=== PATIENT | male | born 1945 | race Caucasian/White ===

== ENCOUNTER 2019-06-28 02:32 | Inpatient (IN) | payer MEDICARE, OTHER ==
[2019-06-28] VITALS (7 sets, daily range): BP systolic 130–156; BP diastolic 64–91
[~2019-06-28] VITALS: Ht 182.9 cm; Wt 86.2 kg
[2019-06-28] MEDS ORDERED: ONDANSETRON PF 4 MG/2 ML VIAL. IVP ONE (03:10)
[2019-06-28] MEDS ORDERED: MORPHINE SULFATE 4 MG/ML VIAL. IV ONE ×2 (03:10→11:30)
--- NOTE | 2019-06-28 06:47 | RAD ---
Indication: Wrist pain after fall TECHNIQUE: 3 views of the left wrist COMPARISON: None Findings/ impression: No acute fracture or dislocation. No wrist edema. Electronically signed by: Terrance Vega DO (06/28/2019 6:44 AM) [facility]
--- NOTE | 2019-06-28 06:48 | RAD ---
Indication: Fall TECHNIQUE: 3 views of the left hip COMPARISON: None Findings/ impression: Complete Left femoral neck fracture is seen with mild displacement.. Electronically signed by: Terrance Vega DO (06/28/2019 6:45 AM) [id number]
[2019-06-28 07:01] LABS: ALBUMIN 3.9 g/dL (3.4-5.0); CALCIUM 8.9 mg/dL (8.5-10.1); CREATININE 0.9 mg/dL (0.7-1.3); GFR 82.9; POTASSIUM 3.6 mmol/L (3.5-5.1); TOTAL BILIRUBIN 0.2 mg/dL (0.2-1.0); TOTAL PROTEIN 7.7 g/dL (6.4-8.2)
[2019-06-28 07:19] LABS: BASO % 1 % (0-3); EOS # 0.1 x10^3/uL (0.0-0.7); EOS % 1 % (0-3); HEMATOCRIT 42.4 % (39.0-53.0); HEMOGLOBIN 14.4 g/dL (13.0-17.5); LYMPH # 1.4 x10^3/uL (1.0-4.8); LYMPH % 29 % (24-48); MEAN CORPUSCULAR HEMOGLOBIN 33 pg (25-35); MEAN CORPUSCULAR HGB CONC 34 g/dL (31-37); MEAN CORPUSCULAR VOLUME 97 fL (79-100); MONO # 0.5 x10^3/uL (0.0-1.1); MONO % 11 % (0-9); NEUT # 2.8 x10^3/uL (1.8-7.7); NEUT % 58 % (31-73); PLATELET COUNT 213 x10^3/uL (140-400); RED CELL DISTRIBUTION WIDTH 13.9 % (11.5-14.5); WHITE BLOOD COUNT 4.8 x10^3/uL (4.0-11.0)
[2019-06-28] MEDS: MORPHINE SULFATE 4 MG/ML VIAL. IV ONE ×2 (08:00→10:56)
[2019-06-28] MEDS ORDERED: fentaNYL PF VIAL 100 MCG/2 ML VIAL IV PRN ×2 (08:30)
[2019-06-28] MEDS ORDERED: HYDROmorphone 2 MG/ML VIAL IV PRN (08:30)
[2019-06-28] MEDS ORDERED: MORPHINE SULFATE 2 MG/ML VIAL. IV PRN ×2 (08:30→20:45)
[2019-06-28] MEDS ORDERED: ONDANSETRON PF 4 MG/2 ML VIAL. IV PRN (08:30)
[2019-06-28] MEDS ORDERED: PROCHLORPERAZINE 10 MG/2 ML VIAL. IV PRN (08:30)
[2019-06-28] MEDS ORDERED: ceFAZolin SODIUM 1 GM in IV DEXTROSE 5% 50 ML IV ONE (08:45)
[2019-06-28] MEDS ORDERED: PANT40TA77 PO (09:53)
[2019-06-28] MEDS ORDERED: CETI10TA16 PO (09:53)
[2019-06-28] MEDS ORDERED: ASPI-630 PO (09:53)
--- NOTE | 2019-06-28 10:30 | NUR ---
KYRA following for discharge planning, chart reviewed, discussed with RN. Pt is from home alone, per RN, pt has some stairs in the home. Pt having surgery today at 11 or noon. Pt's daughter Cora listed as contact ([phone]), [facility]RA will contact to discuss discharge planning. PT/OT to work with pt after surgery. [facility] will continue to follow. Addendum: 06/28/19 at 1505 by KRYSTAL RAE KYRA left voicemail for pt's dtr, Cora ([phone]) requesting a call back. [facility] will continue to follow.
[2019-06-28] MEDS ORDERED: ROCURONIUM 50 MG/5 ML VIAL. ONE (10:32)
[2019-06-28] MEDS ORDERED: LIDOCAINE 2% PF 5 ML VIAL. ONE (10:33)
[2019-06-28] MEDS ORDERED: ONDANSETRON PF 4 MG/2 ML VIAL. ONE (10:33)
[2019-06-28] MEDS ORDERED: SEVOFLURANE 61 TO 120 MINUTES. IH ONE (10:33)
[2019-06-28] MEDS ORDERED: PHENYLEPHRINE in 0.9% NACL PF 1 MG/10 ML SYRINGE. IV ONE (10:33)
[2019-06-28] MEDS ORDERED: PROPOFOL 20 ML IV ONE (10:33)
[2019-06-28] MEDS ORDERED: DEXAMETHASONE SOD PHOS 4 MG/ML VIAL ONE (10:33)
[2019-06-28] MEDS ORDERED: NEOSTIGMINE METHYLSULFATE 5 MG/5 ML SYRINGE. ONE (10:33)
[2019-06-28] MEDS: IV RINGERS,LACTATED 1000ML 1,000 ML IV SCH ×2 (10:46→14:33)
[2019-06-28] MEDS ORDERED: MORPHINE SULFATE 5 MG, KETOROLAC 30MG VIAL 30 MG, ROPIVacaine 0.5% PF 60 ML, EPINEPHrin... INT ART ONE ×5 (12:00)
--- NOTE | 2019-06-28 12:06 | HP ---
ADMIT DATE: 06/28/2019 CHIEF COMPLAINT: Fall with hip pain. HISTORY OF PRESENT ILLNESS: The patient is a pleasant 74-year-old male who fell. He complained of left hip pain. I think he tried to sleep it off, but states his hip was hurting so much. He came to the ER and sure enough the x-rays were confirming of left hip fracture. He is now being seen in the preoperative area and he is getting ready to go to surgery here in a few minutes. PAST MEDICAL HISTORY: GERD and allergic rhinitis. ALLERGIES: None. FAMILY HISTORY: Hypertension. SOCIAL HISTORY: Does not drink, smoke or take drugs. He is and still works. MEDICATIONS: Reviewed, please refer to the MRAD. REVIEW OF SYSTEMS: GENERAL: No history of weight change, weakness or fevers. SKIN: No bruising, hair changes or rashes. EYES: No blurred, double or loss of vision. NOSE AND THROAT: No history of nosebleeds, hoarseness or sore throat. HEART: No history of palpitations, chest pain or shortness of breath on exertion. LUNGS: Denies cough, hemoptysis, wheezing or shortness of breath. GASTROINTESTINAL: Denies changes in appetite, nausea, vomiting, diarrhea or constipation. GENITOURINARY: No history of frequency, urgency, hesitancy or nocturia. NEUROLOGIC: Denies history of numbness, tingling, tremor or weakness. PSYCHIATRIC: No history of panic, anxiety or depression. ENDOCRINE: No history of heat or cold intolerance, polyuria or polydipsia. EXTREMITIES: He complains of left hip pain. PHYSICAL EXAMINATION: VITALS: Within normal limits and are stable. GENERAL: No apparent distress. Alert and oriented. HEENT: Head is normocephalic, atraumatic, pupils were equally round and reactive to light and accommodation. NECK: Supple, no JVD, no thyromegaly was noted. LUNGS: Clear to auscultation in all lung reeves without rhonchi or wheezing. HEART: RRR, S1, S2 present. Peripheral pulses intact, no obvious murmurs were noted. ABDOMEN: Soft, nontender. Positive bowel sounds no organomegaly, normal bowel sounds. EXTREMITIES: The left hip is externally rotated. NEUROLOGIC: Normal speech, normal tone. A & O x 3, moves all extremities, no obvious focal deficits. PSYCHIATRIC: Normal affect, normal mood. Stable. SKIN: No ulcerations or rashes, good skin turgor, no jaundice. VASCULAR: Good capillary refill, neurovascular bundle appears to be intact. LABORATORY DATA: White count is 4. Electrolytes are normal. INR is 0.9. ASSESSMENT AND PLAN: Fall with left hip fracture. The patient is going to surgery today. Postoperatively, we will do wound care, physical therapy, occupational therapy, p.r.n. pain meds, resume home medications. Suspect he will need senior care. THOMAS DOMINIQUE DO DR: SCOTT/nereyda JOB#: [id number] / [id number]
[2019-06-28] MEDS ORDERED: KETOROLAC 30 MG/ML VIAL. ONE (13:13)
[2019-06-28] MEDS ORDERED: ePHEDrine PF IN SALINE 50 MG/10 ML SYRINGE. IV ONE (13:21)
--- NOTE | 2019-06-28 13:44 | PDOC4 ---
Operative Note Operative Note Date of procedure: 06/28/2019 Surgeon: Cole Isaact.: Royr Burrell, certified professional ergonomist Preoperative diagnosis: Displaced closed left femoral neck fracture Postoperative diagnosis: Same Procedure performed: Left hip hemiarthroplasty Anesthesia: Gen. Complications: none Blood loss: 250mL Findings: Acute femoral neck fracture Components inserted: Arauz and nephew cemented Synergy stem, +4 sleeve on a 52 mm cobalt chrome head Reason for procedure: Patient is a pleasant 74-year-old male with a history ofa ground-level fall. Please see my consult note for further details. I discussion of the risks, benefits, and alternatives after I evaluated the patient and review the imaging he and his family and they wished to proceed with surgery. Description of procedure: Patient was greeted in the preoperative area by myself for the correct extremity was verified and marked. He was taken back to the operative suite and antibiotics were started as she was brought back. Once in the operating room, he had successful induction of a general anesthetic and was then transferred supine to the operating room table where he was placed in the lateral decubitus position with the left side up. All down pressure points were padded, axillary roll was used, he was secured to the bed with our hip positioning device. Left lower extremity and hip were prepped and draped in our usual sterile fashion including an Ioban Harrison. Preoperative timeout was conducted. Surface anatomy was then palpated and marked. I gemini a line from my standard posterolateral skin incision. Skin was incised with a scalpel and dissected subcutaneous tissue and cauterized bleeders with electrocautery until identified the fascia. Adherent subcutaneous tissues tissue and swept aside with a Barnes elevator for better identification of the fascia for later repair. Fascia was incised in line with the skin incision. Hemorrhagic bursal tissue was excised carefully. Identified the quadratus and piriformis. I took these down with electrocautery. I incised capsule in a T- type incision and tag ends of this for later repair. Identified the fracture site. I palpated and marked on the femoral neck about 1 cm proximal to the lesser trochanter and then made my neck cut here. The bony pieces were delivered from the operative field. The femoral head was delivered from the acetabulum with the assistance of a shoehorn device and a corkscrew. I inspected the acetabulum, she had some wear. He was t horoughly irrigated out, no loose debris was present. After this, repositioned the leg and introduce my proximal femoral elevator. I began broaching and broached to the above size. I then trialed head and neck combinations. After this, all trial components were removed and the operative field including the femoral canal and acetabulum were thoroughly irrigated. I then cemented in Place my stem and held it in position until the cement polymerized. I then re-trialed and selected the above size. I then removed the trial components after dislocating the hip. The acetabulum was again inspected make sure there was no loose debris. The operative field was again irrigated out. I then washed and dried the Donis taper region and gently impacted my cobalt chrome ball into position. The hip was then reduced. I irrigated out the operative field again. I injected my periarticular mixture into the ana-incisional soft tissues. The capsule was closed with simple interrupted #2 Ethibond. Piriformis was reapproximated through drill holes. I then closed fascia with running #2 Quill suture. Inverted interrupted 2-0 Vicryl in a multilayered fashion was used for subcutaneous tissue and kushal for skin. Prior to wound closure, all counts correct 2. No complications. At the conclusion, the patient was laid supine and transferred gently supine to the recovery room cart and taken to the PACU in a stable and extubated condition. Postoperative plan is to readmit the patient back to the floor under the care of the hospitalist. I will follow along. They will receive DVT and antibiotic prophylaxis as well as PT and OT. COLE MCCARTHY II, MD Jun 28, 2019 13:44
--- NOTE | 2019-06-28 13:49 | PDOC2 ---
CONSULT Date of Consult Date of Consult DATE: 06/28/19 TIME: 13:44 Reason for Consult Reason for Consult: Left femoral neck fracture Referring Physician Referring Physician: Laura Identification/Chief Complaint Chief Complaint Left hip pain History of Present Illness Reason for Visit: Patient is a pleasant 74-year-old gentleman who is staying at a friend's, and woke up during the night, he was a little disoriented and thinks he had a ground-level fall, the He knows is that he is having difficulty moving his leg secondary to a lot of pain in his hip. He was unable to bear weight. He sought emergency care and has asked to see him in consultation after x-rays revealed a femoral neck fracture. His complaining of diffuse left hip pain, worse with movement or attempted ambulation. Fairly tolerable at rest and with pain medicine. The pain radiates down his thigh little ways. He has no prior history of hip complaints. Past Medical History Cardiovascular: HTN Heme/Onc: Cancer Hepatobiliary: Cholelithiasis Psych: No pertinent hx Musculoskeletal: Other (gout) Past Surgical History Past Surgical History He has had procedures for myeloma, transfusions he tells me. Cholecystectomy, ventral hernia repair Family History Family History: Heart Disease Social History No ALCOHOL: none Lives: Alone Current Medications Current Medications Current Medications Morphine Sulfate (Morphine Sulfate) 4 mg 1X ONCE IV ; Start 06/28/19 at 03:10; Stop 06/28/19 at 05:20; Status DC Ondansetron HCl (Zofran) 4 mg 1X ONCE IVP ; Start 06/28/19 at 03:10; Stop 06/28/19 at 05:20; Status DC Morphine Sulfate (Morphine Sulfate) 4 mg 1X ONCE IV ; Start 06/28/19 at 08:00; Stop 06/28/19 at 08:01; Status DC Ondansetron HCl (Zofran) 4 mg PRN Q6HRS PRN IV NAUSEA/VOMITING; Start 06/28/19 at 08:30; Stop 06/28/19 at 19:00 Fentanyl Citrate (Fentanyl 2ml Vial) 25 mcg PRN Q5MIN PRN IV MILD PAIN 1-3; Start 06/28/19 at 08:30; Stop 06/28/19 at 19:00 Fentanyl Citrate (Fentanyl 2ml Vial) 50 mcg PRN Q5MIN PRN IV MODERATE TO SEVERE PAIN; Start 06/28/19 at 08:30; Stop 06/28/19 at 19:00 Morphine Sulfate (Morphine Sulfate) 1 mg PRN Q10MIN PRN IV SEVERE PAIN 7-10; Start 06/28/19 at 08:30; Stop 06/28/19 at 19:00 Ringer's Solution 1,000 ml @ 30 mls/hr Q24H IV Last administered on 06/28/19at 10:46; Start 06/28/19 at 08:16; Stop 06/28/19 at 20:15 Hydromorphone HCl (Dilaudid) 0.5 mg PRN Q10MIN PRN IV SEV PAIN, Second choice; Start 06/28/19 at 08:30; Stop 06/28/19 at 19:00 Prochlorperazine Edisylate (Compazine) 5 mg PACU PRN PRN IV NAUSEA, MRX1; Start 06/28/19 at 08:30; Stop 06/28/19 at 19:00 Cefazolin Sodium 1 gm/Dextrose 50 ml @ 100 mls/hr 1X ONCE IV ; Start 06/28/19 at 08:45; Stop 06/28/19 at 09:14; Status UNV Cefazolin Sodium 50 ml @ 100 mls/hr 1X PREOP PRN IV PRIOR TO PROCEDURE; Start 06/28/19 at 06:00; Stop 06/28/19 at 12:06; Status DC Morphine Sulfate 5 mg/Ketorolac Tromethamine 30 mg/Ropivacaine 60 ml/Epinephrine HCl 0.5 mg/Sodium Chloride 100 ml @ 100 mls/hr 1X ONCE INT ART Last administered on 06/28/19at 12:26; Start 06/28/19 at 12:00; Stop 06/28/19 at 12:59; Status DC Rocuronium Brimhall (Zemuron) 50 mg STK-MED ONCE .ROUTE ; Start 06/28/19 at 10:32; Stop 06/28/19 at 10:33; Status DC Neostigmine Methylsulfate (Neostigmine Methylsulfate) 5 mg STK-MED ONCE .ROUTE ; Start 06/28/19 at 10:33; Stop 06/28/19 at 10:33; Status DC Sevoflurane (Ultane) 60 ml STK-MED ONCE IH ; Start 06/28/19 at 10:33; Stop 06/28/19 at 10:33; Status DC Propofol 20 ml @ As Directed STK-MED ONCE IV ; Start 06/28/19 at 10:33; Stop 06/28/19 at 10:33; Status DC Dexamethasone Sodium Phosphate (Decadron) 4 mg STK-MED ONCE .ROUTE ; Start 06/28/19 at 10:33; Stop 06/28/19 at 10:33; Status DC Phenylephrine HCl (PHENYLEPHRINE in 0.9% NACL PF) 1 mg STK-MED ONCE IV ; Start 06/28/19 at 10:33; Stop 06/28/19 at 10:33; Status DC Lidocaine HCl (Lidocaine Pf 2% Vial) 5 ml STK-MED ONCE .ROUTE ; Start 06/28/19 at 10:33; Stop 06/28/19 at 10:33; Status DC Ondansetron HCl (Zofran) 4 mg STK-MED ONCE .ROUTE ; Start 06/28/19 at 10:33; Stop 06/28/19 at 10:34; Status DC Morphine Sulfate (Morphine Sulfate) 4 mg 1X ONCE IV Last administered on 06/28/19at 10:56; Start 06/28/19 at 11:30; Stop 06/28/19 at 11:31; Status DC Cefazolin Sodium/ Dextrose 50 ml @ 100 mls/hr 1X ONCE IV Last administered on 06/28/19at 12:00; Start 06/28/19 at 11:30; Stop 06/28/19 at 11:59; Status DC Cefazolin Sodium/ Dextrose 50 ml @ 100 mls/hr Q6H IV ; Start 06/28/19 at 18:00; Stop 06/29/19 at 06:29 Warfarin Sodium (Coumadin Per Pharmacy) 1 each PRN DAILY PRN MC SEE COMMENTS; Start 06/28/19 at 12:15 Warfarin Sodium (Coumadin) 5 mg 1X ONCE PO ; Start 06/28/19 at 17:00; Stop 06/28/19 at 17:01 Ketorolac Tromethamine (Toradol 30mg Vial) 30 mg STK-MED ONCE .ROUTE ; Start 06/28/19 at 13:13; Stop 06/28/19 at 13:13; Status DC Ephedrine Sulfate (ePHEDrine PF IN SALINE SYRINGE) 50 mg STK-MED ONCE IV ; Start 06/28/19 at 13:21; Stop 06/28/19 at 13:21; Status DC Active Scripts Active Reported Aspirin 81 Mg Tab.chew 1 Tab PO DAILY Pantoprazole Sodium (Pantoprazole Sodium) 40 Mg Tablet.dr 40 Mg PO DAILYAC Cetirizine Hcl 10 Mg Tablet 1 Tab PO DAILY Allergies Allergies: Coded Allergies: No Known Drug Allergies (Unverified , 06/28/19) ROS General: No: Chills, Night Sweats, Fatigue, Malaise, Appetite, Other PSYCHOLOGICAL ROS: No: Anxiety, Behavioral Disorder, Concentration difficultie, Decreased libido, Depression, Disorientation, Hallucinations, Hostility, Irritablity, Memory difficulties, Mood Swings, Obsessive thoughts, Physical abuse, Sexual abuse, Sleep disturbances, Suicidal ideation, Other Eyes: No Blurry vision, No Decreased vision, No Double vision, No Dry eyes, No Excessive tearing, No Eye Pain, No Itchy Eyes, No Loss of vision, No Photophobia, No Scotomata, No Uses contacts, No Uses glasses, No Other HEENT: No: Heacaches, Visual Changes, Hearing change, Nasal congestion, Nasal discharge, Oral lesions, Sinus pain, Sore Throat, Epistaxis, Sneezing, Snoring, Tinnitus, Vertigo, Vocal changes, Other ALLERGY AND IMMUNOLOGY: No: Hives, Insect Bite Sensitivity, Itchy/Watery Eyes, Nasal Congestion, Post Nasal Drip, Seasonal Allergies, Other Hematological and Lymphatic: No: Bleeding Problems, Blood Clots, Blood Transfusions, Brusing, Night Sweats, Pallor, Swollen Lymph Nodes, Other ENDOCRINE: No: Breast Changes, Galactorrhea, Hair Pattern Changes, Hot Flashes, Malaise/lethargy, Mood Swings, Palpitations, Polydipsia/polyuria, Skin Changes, Temperature Intolerance, Unexpected Weight Changes, Other Respiratory: No: Cough, Hemoptysis, Orthopnea, Pleuritic Pain, Shortness of breath, SOB with excertion, Sputum Changes, Stridor, Tachypnea, Wheezing, Other Cardiovascular: No Chest Pain, No Palpitations, No Orthopnea, No Paroxysmal Noc. Dyspnea, No Edema, No Lt Headedness, No Other Gastrointestinal: No Nausea, No Vomiting, No Abdominal Pain, No Diarrhea, No Constipation, No Melena, No Hematochezia, No Other Genitourinary: No Dysuria, No Frequency, No Incontinence, No Hematuria, No Retention, No Discharge, No Urgency, No Pain, No Flank Pain, No Other, No , No , No , No , No , No , No Musculoskeletal: Yes Joint Pain Neurological: No Behavorial Changes, No Bowel/Bladder ControlChng, No Confusion, No Dizziness, No Gait Disturbance, No Headaches, No Impaired Coord/balance, No Memory Loss, No Numbness/Tingling, No Seizures, No Speech Problems, No Tremors, No Visual Changes, No Weakness, No Other Skin: No Dry Skin, No Eczema, No Hair Changes, No Lumps, No Mole Changes, No Mottling, No Nail Changes, No Pruritus, No Rash, No Skin Lesion Changes, No Other, No Acne Physical Exam General: Alert, Oriented X3 HEENT: Atraumatic, EOMI Lungs: Other (respirations are unlabored with symmetric chest rise) Heart: Regular rate Abdomen: Normal bowel sounds, Soft, No tenderness Extremities: No edema, Normal pulses Skin: No rashes Neuro: Normal speech, Strength at 5/5 X4 ext, Sensation intact Psych/Mental Status: Mental status NL, Mood NL MUSCULOSKELETAL: Not examined, Other (examination of bilateral upper extremities reveals full active range of motion, no gross deformity at all joints. Examination bilateral lower extremities reveals left lower extremity is shorter and slightly externally rotated. Normal sensation distally. He can wiggle his toes. No tenderness at bilateral feet ankles or knees.) Vitals VITALS Vital Signs Date Time Temp Pulse Resp B/P (MAP) Pulse Ox O2 Delivery O2 Flow Rate FiO2 06/28/19 11:09 85 20 153/78 94 Room Air 06/28/19 11:05 99.1 99.1 Labs Labs Laboratory Tests Test 06/28/19 02:42 White Blood Count 4.8 x10^3/uL (4.0-11.0) Red Blood Count 4.40 x10^6/uL (4.30-5.70) Hemoglobin 14.4 g/dL (13.0-17.5) Hematocrit 42.4 % (39.0-53.0) Mean Corpuscular Volume 97 fL (79-100) Mean Corpuscular Hemoglobin 33 pg (25-35) Mean Corpuscular Hemoglobin Concent 34 g/dL (31-37) Red Cell Distribution Width 13.9 % (11.5-14.5) Platelet Count 213 x10^3/uL (140-400) Neutrophils (%) (Auto) 58 % (31-73) Lymphocytes (%) (Auto) 29 % (24-48) Monocytes (%) (Auto) 11 % (0-9) Eosinophils (%) (Auto) 1 % (0-3) Basophils (%) (Auto) 1 % (0-3) Neutrophils # (Auto) 2.8 x10^3/uL (1.8-7.7) Lymphocytes # (Auto) 1.4 x10^3/uL (1.0-4.8) Monocytes # (Auto) 0.5 x10^3/uL (0.0-1.1) Eosinophils # (Auto) 0.1 x10^3/uL (0.0-0.7) Basophils # (Auto) 0.0 x10^3/uL (0.0-0.2) Prothrombin Time 12.0 SEC (11.7-14.0) Prothromb Time International Ratio 0.9 (0.8-1.1) Activated Partial Thromboplast Time 28 SEC (24-38) Sodium Level 142 mmol/L (136-145) Potassium Level 3.6 mmol/L (3.5-5.1) Chloride Level 103 mmol/L (98-107) Carbon Dioxide Level 28 mmol/L (21-32) Anion Gap 11 (6-14) Blood Urea Nitrogen 12 mg/dL (8-26) Creatinine 0.9 mg/dL (0.7-1.3) Estimated GFR (Cockcroft-Gault) 82.9 BUN/Creatinine Ratio 13 (6-20) Glucose Level 104 mg/dL (70-99) Calcium Level 8.9 mg/dL (8.5-10.1) Total Bilirubin 0.2 mg/dL (0.2-1.0) Aspartate Amino Transf (AST/SGOT) 25 U/L (15-37) Alanine Aminotransferase (ALT/SGPT) 28 U/L (16-63) Alkaline Phosphatase 97 U/L (46-116) Total Protein 7.7 g/dL (6.4-8.2) Albumin 3.9 g/dL (3.4-5.0) Albumin/Globulin Ratio 1.0 (1.0-1.7) Laboratory Tests Test 06/28/19 02:42 White Blood Count 4.8 x10^3/uL (4.0-11.0) Red Blood Count 4.40 x10^6/uL (4.30-5.70) Hemoglobin 14.4 g/dL (13.0-17.5) Hematocrit 42.4 % (39.0-53.0) Mean Corpuscular Volume 97 fL (79-100) Mean Corpuscular Hemoglobin 33 pg (25-35) Mean Corpuscular Hemoglobin Concent 34 g/dL (31-37) Red Cell Distribution Width 13.9 % (11.5-14.5) Platelet Count 213 x10^3/uL (140-400) Neutrophils (%) (Auto) 58 % (31-73) Lymphocytes (%) (Auto) 29 % (24-48) Monocytes (%) (Auto) 11 % (0-9) Eosinophils (%) (Auto) 1 % (0-3) Basophils (%) (Auto) 1 % (0-3) Neutrophils # (Auto) 2.8 x10^3/uL (1.8-7.7) Lymphocytes # (Auto) 1.4 x10^3/uL (1.0-4.8) Monocytes # (Auto) 0.5 x10^3/uL (0.0-1.1) Eosinophils # (Auto) 0.1 x10^3/uL (0.0-0.7) Basophils # (Auto) 0.0 x10^3/uL (0.0-0.2) Prothrombin Time 12.0 SEC (11.7-14.0) Prothromb Time International Ratio 0.9 (0.8-1.1) Activated Partial Thromboplast Time 28 SEC (24-38) Sodium Level 142 mmol/L (136-145) Potassium Level 3.6 mmol/L (3.5-5.1) Chloride Level 103 mmol/L (98-107) Carbon Dioxide Level 28 mmol/L (21-32) Anion Gap 11 (6-14) Blood Urea Nitrogen 12 mg/dL (8-26) Creatinine 0.9 mg/dL (0.7-1.3) Estimated GFR (Cockcroft-Gault) 82.9 BUN/Creatinine Ratio 13 (6-20) Glucose Level 104 mg/dL (70-99) Calcium Level 8.9 mg/dL (8.5-10.1) Total Bilirubin 0.2 mg/dL (0.2-1.0) Aspartate Amino Transf (AST/SGOT) 25 U/L (15-37) Alanine Aminotransferase (ALT/SGPT) 28 U/L (16-63) Alkaline Phosphatase 97 U/L (46-116) Total Protein 7.7 g/dL (6.4-8.2) Albumin 3.9 g/dL (3.4-5.0) Albumin/Globulin Ratio 1.0 (1.0-1.7) Images Images The pelvis x-rays were interpreted by myself. Reports reviewed. Displaced left femoral neck fracture Assessment/Plan Assessment/Plan Today, he did have a discussion of the risks, benefits, and alternatives with this gentleman regarding left hip hemiarthroplasty. He would like to proceed with surgery. MAYLIN MCCARTHY II, MD Jun 28, 2019 13:49
--- NOTE | 2019-06-28 15:20 | RAD ---
EXAM: Pelvis, single view. HISTORY: Arthroplasty. COMPARISON: 06/28/2019 FINDINGS: Frontal views of the pelvis are obtained. There is a left hip arthroplasty in expected position. There is surrounding soft tissue gas and there are lateral skin kushal due to recent surgery. There are findings consistent with right inguinal hernia repair. There is degenerative change involving the lumbar spine. IMPRESSION: Left hip arthroplasty in expected position. Electronically signed by: Tess Oneill MD (06/28/2019 3:17 PM) [place] [id number]
[2019-06-28] MEDS ORDERED: WARFARIN 5 MG TABLET. PO ONE (17:00)
[2019-06-28] MEDS: HYDROcodone/APAP 5/325MG 1 TAB TABLET PO PRN (20:58)
[2019-06-29] MEDS ORDERED: BENZOCAINE/MENTHOL LOZENGE. PO PRN (00:45)
[2019-06-29 03:00] VITALS: BP 106/71
[2019-06-29] MEDS: HYDROcodone/APAP 5/325MG 1 TAB TABLET PO PRN ×4 (06:12→22:00)
[2019-06-29 07:00] VITALS: BP 119/67
[2019-06-29] MEDS ORDERED: ONDANSETRON PF 4 MG/2 ML VIAL. IVP PRN (07:30)
[2019-06-29 08:29] LABS: BASO % 0 % (0-3); EOS % 0 % (0-3); HEMOGLOBIN 11.4 g/dL (13.0-17.5); LYMPH # 1.7 x10^3/uL (1.0-4.8); LYMPH % 17 % (24-48); MEAN CORPUSCULAR HEMOGLOBIN 33 pg (25-35); MEAN CORPUSCULAR HGB CONC 35 g/dL (31-37); MEAN CORPUSCULAR VOLUME 96 fL (79-100); MONO # 1.3 x10^3/uL (0.0-1.1); MONO % 13 % (0-9); NEUT # 7.4 x10^3/uL (1.8-7.7); NEUT % 70 % (31-73); PLATELET COUNT 156 x10^3/uL (140-400); RED BLOOD COUNT 3.45 x10^6/uL (4.30-5.70); RED CELL DISTRIBUTION WIDTH 13.9 % (11.5-14.5); WHITE BLOOD COUNT 10.5 x10^3/uL (4.0-11.0)
[2019-06-29 08:45] LABS: CALCIUM 8.1 mg/dL (8.5-10.1); CREATININE 1.2 mg/dL (0.7-1.3); GFR 59.5; POTASSIUM 4.3 mmol/L (3.5-5.1)
--- NOTE | 2019-06-29 08:49 | PDOC ---
PROGRESS NOTES Chief Complaint Chief Complaint s/p left hip sx for fx 06/28 HTN, controlled Seasonal allergies Ground level fall History of Present Illness History of Present Illness Eating breakfast and no overnight events Pre op labs look great PLeasant FAmily at bedside VS good INterested in rehab Looking forward to pT later PLAN: check POst op labs, CHeck vit D PT OT SW rehab FULL CODE Vitals Vitals Vital Signs Date Time Temp Pulse Resp B/P (MAP) Pulse Ox O2 Delivery O2 Flow Rate FiO2 06/29/19 07:00 98.0 80 18 119/67 (84) 92 Room Air 98.0 06/28/19 16:30 2.0 Physical Exam General: Alert, Oriented X3 Heart: Regular rate Abdomen: Normal bowel sounds, Soft, No tenderness Extremities: No edema, Normal pulses Skin: No rashes Labs LABS Laboratory Tests Test 06/29/19 08:10 White Blood Count 10.5 x10^3/uL (4.0-11.0) Red Blood Count 3.45 x10^6/uL (4.30-5.70) Hemoglobin 11.4 g/dL (13.0-17.5) Hematocrit 33.0 % (39.0-53.0) Mean Corpuscular Volume 96 fL (79-100) Mean Corpuscular Hemoglobin 33 pg (25-35) Mean Corpuscular Hemoglobin Concent 35 g/dL (31-37) Red Cell Distribution Width 13.9 % (11.5-14.5) Platelet Count 156 x10^3/uL (140-400) Neutrophils (%) (Auto) 70 % (31-73) Lymphocytes (%) (Auto) 17 % (24-48) Monocytes (%) (Auto) 13 % (0-9) Eosinophils (%) (Auto) 0 % (0-3) Basophils (%) (Auto) 0 % (0-3) Neutrophils # (Auto) 7.4 x10^3/uL (1.8-7.7) Lymphocytes # (Auto) 1.7 x10^3/uL (1.0-4.8) Monocytes # (Auto) 1.3 x10^3/uL (0.0-1.1) Eosinophils # (Auto) 0.0 x10^3/uL (0.0-0.7) Basophils # (Auto) 0.0 x10^3/uL (0.0-0.2) Review of Systems Review of Systems neg 14 pt aside from left hip soreness when moving Comment Review of Relevant I have reviewed the following items brad (where applicable) has been applied. Labs Laboratory Tests Test 06/28/19 02:42 06/29/19 08:10 White Blood Count 4.8 x10^3/uL (4.0-11.0) 10.5 x10^3/uL (4.0-11.0) Red Blood Count 4.40 x10^6/uL (4.30-5.70) 3.45 x10^6/uL (4.30-5.70) Hemoglobin 14.4 g/dL (13.0-17.5) 11.4 g/dL (13.0-17.5) Hematocrit 42.4 % (39.0-53.0) 33.0 % (39.0-53.0) Mean Corpuscular Volume 97 fL (79-100) 96 fL (79-100) Mean Corpuscular Hemoglobin 33 pg (25-35) 33 pg (25-35) Mean Corpuscular Hemoglobin Concent 34 g/dL (31-37) 35 g/dL (31-37) Red Cell Distribution Width 13.9 % (11.5-14.5) 13.9 % (11.5-14.5) Platelet Count 213 x10^3/uL (140-400) 156 x10^3/uL (140-400) Neutrophils (%) (Auto) 58 % (31-73) 70 % (31-73) Lymphocytes (%) (Auto) 29 % (24-48) 17 % (24-48) Monocytes (%) (Auto) 11 % (0-9) 13 % (0-9) Eosinophils (%) (Auto) 1 % (0-3) 0 % (0-3) Basophils (%) (Auto) 1 % (0-3) 0 % (0-3) Neutrophils # (Auto) 2.8 x10^3/uL (1.8-7.7) 7.4 x10^3/uL (1.8-7.7) Lymphocytes # (Auto) 1.4 x10^3/uL (1.0-4.8) 1.7 x10^3/uL (1.0-4.8) Monocytes # (Auto) 0.5 x10^3/uL (0.0-1.1) 1.3 x10^3/uL (0.0-1.1) Eosinophils # (Auto) 0.1 x10^3/uL (0.0-0.7) 0.0 x10^3/uL (0.0-0.7) Basophils # (Auto) 0.0 x10^3/uL (0.0-0.2) 0.0 x10^3/uL (0.0-0.2) Prothrombin Time 12.0 SEC (11.7-14.0) Prothromb Time International Ratio 0.9 (0.8-1.1) Activated Partial Thromboplast Time 28 SEC (24-38) Sodium Level 142 mmol/L (136-145) Potassium Level 3.6 mmol/L (3.5-5.1) Chloride Level 103 mmol/L (98-107) Carbon Dioxide Level 28 mmol/L (21-32) Anion Gap 11 (6-14) Blood Urea Nitrogen 12 mg/dL (8-26) Creatinine 0.9 mg/dL (0.7-1.3) Estimated GFR (Cockcroft-Gault) 82.9 BUN/Creatinine Ratio 13 (6-20) Glucose Level 104 mg/dL (70-99) Calcium Level 8.9 mg/dL (8.5-10.1) Total Bilirubin 0.2 mg/dL (0.2-1.0) Aspartate Amino Transf (AST/SGOT) 25 U/L (15-37) Alanine Aminotransferase (ALT/SGPT) 28 U/L (16-63) Alkaline Phosphatase 97 U/L (46-116) Total Protein 7.7 g/dL (6.4-8.2) Albumin 3.9 g/dL (3.4-5.0) Albumin/Globulin Ratio 1.0 (1.0-1.7) Laboratory Tests Test 06/29/19 08:10 White Blood Count 10.5 x10^3/uL (4.0-11.0) Red Blood Count 3.45 x10^6/uL (4.30-5.70) Hemoglobin 11.4 g/dL (13.0-17.5) Hematocrit 33.0 % (39.0-53.0) Mean Corpuscular Volume 96 fL (79-100) Mean Corpuscular Hemoglobin 33 pg (25-35) Mean Corpuscular Hemoglobin Concent 35 g/dL (31-37) Red Cell Distribution Width 13.9 % (11.5-14.5) Platelet Count 156 x10^3/uL (140-400) Neutrophils (%) (Auto) 70 % (31-73) Lymphocytes (%) (Auto) 17 % (24-48) Monocytes (%) (Auto) 13 % (0-9) Eosinophils (%) (Auto) 0 % (0-3) Basophils (%) (Auto) 0 % (0-3) Neutrophils # (Auto) 7.4 x10^3/uL (1.8-7.7) Lymphocytes # (Auto) 1.7 x10^3/uL (1.0-4.8) Monocytes # (Auto) 1.3 x10^3/uL (0.0-1.1) Eosinophils # (Auto) 0.0 x10^3/uL (0.0-0.7) Basophils # (Auto) 0.0 x10^3/uL (0.0-0.2) Medications Current Medications Morphine Sulfate (Morphine Sulfate) 4 mg 1X ONCE IV ; Start 06/28/19 at 03:10; Stop 06/28/19 at 05:20; Status DC Ondansetron HCl (Zofran) 4 mg 1X ONCE IVP ; Start 06/28/19 at 03:10; Stop 06/28/19 at 05:20; Status DC Morphine Sulfate (Morphine Sulfate) 4 mg 1X ONCE IV ; Start 06/28/19 at 08:00; Stop 06/28/19 at 08:01; Status DC Ondansetron HCl (Zofran) 4 mg PRN Q6HRS PRN IV NAUSEA/VOMITING; Start 06/28/19 at 08:30; Stop 06/28/19 at 17:46; Status DC Fentanyl Citrate (Fentanyl 2ml Vial) 25 mcg PRN Q5MIN PRN IV MILD PAIN 1-3; Start 06/28/19 at 08:30; Stop 06/28/19 at 17:46; Status DC Fentanyl Citrate (Fentanyl 2ml Vial) 50 mcg PRN Q5MIN PRN IV MODERATE TO SEVERE PAIN; Start 06/28/19 at 08:30; Stop 06/28/19 at 17:46; Status DC Morphine Sulfate (Morphine Sulfate) 1 mg PRN Q10MIN PRN IV SEVERE PAIN 7-10; Start 06/28/19 at 08:30; Stop 06/28/19 at 17:46; Status DC Ringer's Solution 1,000 ml @ 30 mls/hr Q24H IV Last administered on 06/28/19at 14:33; Start 06/28/19 at 08:16; Stop 06/28/19 at 20:15; Status DC Hydromorphone HCl (Dilaudid) 0.5 mg PRN Q10MIN PRN IV SEV PAIN, Second choice; Start 06/28/19 at 08:30; Stop 06/28/19 at 17:46; Status DC Prochlorperazine Edisylate (Compazine) 5 mg PACU PRN PRN IV NAUSEA, MRX1; Start 06/28/19 at 08:30; Stop 06/28/19 at 17:46; Status DC Cefazolin Sodium 1 gm/Dextrose 50 ml @ 100 mls/hr 1X ONCE IV ; Start 06/28/19 at 08:45; Stop 06/28/19 at 09:14; Status UNV Cefazolin Sodium 50 ml @ 100 mls/hr 1X PREOP PRN IV PRIOR TO PROCEDURE; Start 06/28/19 at 06:00; Stop 06/28/19 at 12:06; Status DC Morphine Sulfate 5 mg/Ketorolac Tromethamine 30 mg/Ropivacaine 60 ml/Epinephrine HCl 0.5 mg/Sodium Chloride 100 ml @ 100 mls/hr 1X ONCE INT ART Last administered on 06/28/19at 12:26; Start 06/28/19 at 12:00; Stop 06/28/19 at 12:59; Status DC Rocuronium [place] (Zemuron) 50 mg STK-MED ONCE .ROUTE ; Start 06/28/19 at 10:32; Stop 06/28/19 at 10:33; Status DC Neostigmine Methylsulfate (Neostigmine Methylsulfate) 5 mg STK-MED ONCE .ROUTE ; Start 06/28/19 at 10:33; Stop 06/28/19 at 10:33; Status DC Sevoflurane (Ultane) 60 ml STK-MED ONCE IH ; Start 06/28/19 at 10:33; Stop 06/28/19 at 10:33; Status DC Propofol 20 ml @ As Directed STK-MED ONCE IV ; Start 06/28/19 at 10:33; Stop 06/28/19 at 10:33; Status DC Dexamethasone Sodium Phosphate (Decadron) 4 mg STK-MED ONCE .ROUTE ; Start 06/28/19 at 10:33; Stop 06/28/19 at 10:33; Status DC Phenylephrine HCl (PHENYLEPHRINE in 0.9% NACL PF) 1 mg STK-MED ONCE IV ; Start 06/28/19 at 10:33; Stop 06/28/19 at 10:33; Status DC Lidocaine HCl (Lidocaine Pf 2% Vial) 5 ml STK-MED ONCE .ROUTE ; Start 06/28/19 at 10:33; Stop 06/28/19 at 10:33; Status DC Ondansetron HCl (Zofran) 4 mg STK-MED ONCE .ROUTE ; Start 06/28/19 at 10:33; Stop 06/28/19 at 10:34; Status DC Morphine Sulfate (Morphine Sulfate) 4 mg 1X ONCE IV Last administered on 06/28/19at 10:56; Start 06/28/19 at 11:30; Stop 06/28/19 at 11:31; Status DC Cefazolin Sodium/ Dextrose 50 ml @ 100 mls/hr 1X ONCE IV Last administered on 06/28/19at 12:00; Start 06/28/19 at 11:30; Stop 06/28/19 at 11:59; Status DC Cefazolin Sodium/ Dextrose 50 ml @ 100 mls/hr Q6H IV Last administered on 06/29/19at 06:12; Start 06/28/19 at 18:00; Stop 06/29/19 at 06:29; Status DC Warfarin Sodium (Coumadin Per Pharmacy) 1 each PRN DAILY PRN MC SEE COMMENTS; Start 06/28/19 at 12:15 Warfarin Sodium (Coumadin) 5 mg 1X ONCE PO Last administered on 06/28/19at 16:53; Start 06/28/19 at 17:00; Stop 06/28/19 at 17:01; Status DC Ketorolac Tromethamine (Toradol 30mg Vial) 30 mg STK-MED ONCE .ROUTE ; Start 06/28/19 at 13:13; Stop 06/28/19 at 13:13; Status DC Ephedrine Sulfate (ePHEDrine PF IN SALINE SYRINGE) 50 mg STK-MED ONCE IV ; Start 06/28/19 at 13:21; Stop 06/28/19 at 13:21; Status DC Morphine Sulfate (Morphine Sulfate) 2 mg PRN Q2HR PRN IV SEVERE PAIN 7-10 Last administered on 06/28/19at 21:21; Start 06/28/19 at 20:45; Stop 06/29/19 at 07:27; Status DC Acetaminophen/ Hydrocodone Bitart (Lortab 5/325) 1 tab PRN Q4HRS PRN PO MODERATE PAIN 4-6 Last administered on 06/29/19at 06:12; Start 06/28/19 at 20:45 Throat Lozenges (Cepacol Sore Throat Lozenge) 1 dmitry PRN Q2HRS PRN PO SORE THROAT Last administered on 06/29/19at 03:10; Start 06/29/19 at 00:45 Ondansetron HCl (Zofran) 4 mg PRN Q6HRS PRN IVP NAUSEA/VOMITING; Start 06/29/19 at 07:30 Morphine Sulfate (Morphine Sulfate) 2 mg PRN Q2HR PRN IV PAIN; Start 06/29/19 at 07:30 Pantoprazole Sodium (Protonix) 40 mg DAILYAC PO ; Start 06/29/19 at 07:30 Active Scripts Active Reported Aspirin 81 Mg Tab.chew 1 Tab PO DAILY Pantoprazole Sodium (Pantoprazole Sodium) 40 Mg Tablet.dr 40 Mg PO DAILYAC Cetirizine Hcl 10 Mg Tablet 1 Tab PO DAILY Vitals/I & O Vital Sign - Last 24 Hours 06/28/19 06/28/19 06/28/19 06/28/19 10:56 11:05 11:09 13:50 Temp 99.1 98.5 99.1 98.5 Pulse 91 85 90 Resp 20 20 20 20 B/P (MAP) 162/89 153/78 147/75 Pulse Ox 99 99 94 99 O2 Delivery Room Air Room Air Room Air Simple Mask O2 Flow Rate 10 06/28/19 06/28/19 06/28/19 06/28/19 13:50 14:05 14:20 14:35 Pulse 85 84 89 Resp 20 20 22 B/P (MAP) 144/67 148/78 144/76 Pulse Ox 98 99 90 O2 Delivery Mask Simple Mask Room Air Room Air O2 Flow Rate 10 10 06/28/19 06/28/19 06/28/19 06/28/19 14:50 14:58 15:02 15:30 Temp 98.5 98.5 Pulse 96 93 104 Resp 20 20 B/P (MAP) 138/73 140/80 139/80 (99) Pulse Ox 97 96 92 O2 Delivery Room Air Nasal Cannula Room Air Nasal Cannula O2 Flow Rate 2 2.0 06/28/19 06/28/19 06/28/19 06/28/19 16:00 16:15 16:30 19:00 Temp 98.0 98.0 Pulse 111 107 107 96 Resp 18 B/P (MAP) 141/86 (104) 133/88 (103) 130/64 (86) 140/78 (98) Pulse Ox 92 94 97 94 O2 Delivery Nasal Cannula Nasal Cannula Nasal Cannula Room Air O2 Flow Rate 2.0 2.0 2.0 06/28/19 06/28/19 06/28/19 06/28/19 20:00 21:51 21:51 23:00 Temp 98.3 98.3 Pulse 95 Resp 18 B/P (MAP) 132/67 (88) Pulse Ox 93 O2 Delivery Room Air Room Air Room Air Room Air 06/29/19 06/29/19 06/29/19 03:00 06:12 07:00 Temp 98.5 98.0 98.5 98.0 Pulse 83 80 Resp 18 18 B/P (MAP) 106/71 (83) 119/67 (84) Pulse Ox 93 92 O2 Delivery Room Air Room Air Room Air Intake and Output 06/28/19 06/28/19 06/29/19 15:00 23:00 07:00 Intake Total 1570 ml 300 ml 0 ml Output Total 250 ml 400 ml Balance 1320 ml -100 ml 0 ml THERESA LEIVA MD Jun 29, 2019 08:49
--- NOTE | 2019-06-29 08:50 | PDOC ---
ORTHO PROGRESS NOTES Subjective Agustin tells me that his hip does ache, but it is tolerable. He has not been out of bed yet Vitals Vital Signs Date Time Temp Pulse Resp B/P (MAP) Pulse Ox O2 Delivery O2 Flow Rate FiO2 06/29/19 07:00 98.0 80 18 119/67 (84) 92 Room Air 98.0 06/28/19 16:30 2.0 Labs Laboratory Tests Test 06/28/19 02:42 06/29/19 08:10 White Blood Count 4.8 x10^3/uL (4.0-11.0) 10.5 x10^3/uL (4.0-11.0) Red Blood Count 4.40 x10^6/uL (4.30-5.70) 3.45 x10^6/uL (4.30-5.70) Hemoglobin 14.4 g/dL (13.0-17.5) 11.4 g/dL (13.0-17.5) Hematocrit 42.4 % (39.0-53.0) 33.0 % (39.0-53.0) Mean Corpuscular Volume 97 fL (79-100) 96 fL (79-100) Mean Corpuscular Hemoglobin 33 pg (25-35) 33 pg (25-35) Mean Corpuscular Hemoglobin Concent 34 g/dL (31-37) 35 g/dL (31-37) Red Cell Distribution Width 13.9 % (11.5-14.5) 13.9 % (11.5-14.5) Platelet Count 213 x10^3/uL (140-400) 156 x10^3/uL (140-400) Neutrophils (%) (Auto) 58 % (31-73) 70 % (31-73) Lymphocytes (%) (Auto) 29 % (24-48) 17 % (24-48) Monocytes (%) (Auto) 11 % (0-9) 13 % (0-9) Eosinophils (%) (Auto) 1 % (0-3) 0 % (0-3) Basophils (%) (Auto) 1 % (0-3) 0 % (0-3) Neutrophils # (Auto) 2.8 x10^3/uL (1.8-7.7) 7.4 x10^3/uL (1.8-7.7) Lymphocytes # (Auto) 1.4 x10^3/uL (1.0-4.8) 1.7 x10^3/uL (1.0-4.8) Monocytes # (Auto) 0.5 x10^3/uL (0.0-1.1) 1.3 x10^3/uL (0.0-1.1) Eosinophils # (Auto) 0.1 x10^3/uL (0.0-0.7) 0.0 x10^3/uL (0.0-0.7) Basophils # (Auto) 0.0 x10^3/uL (0.0-0.2) 0.0 x10^3/uL (0.0-0.2) Prothrombin Time 12.0 SEC (11.7-14.0) Prothromb Time International Ratio 0.9 (0.8-1.1) Activated Partial Thromboplast Time 28 SEC (24-38) Sodium Level 142 mmol/L (136-145) Potassium Level 3.6 mmol/L (3.5-5.1) Chloride Level 103 mmol/L (98-107) Carbon Dioxide Level 28 mmol/L (21-32) Anion Gap 11 (6-14) Blood Urea Nitrogen 12 mg/dL (8-26) Creatinine 0.9 mg/dL (0.7-1.3) Estimated GFR (Cockcroft-Gault) 82.9 BUN/Creatinine Ratio 13 (6-20) Glucose Level 104 mg/dL (70-99) Calcium Level 8.9 mg/dL (8.5-10.1) Total Bilirubin 0.2 mg/dL (0.2-1.0) Aspartate Amino Transf (AST/SGOT) 25 U/L (15-37) Alanine Aminotransferase (ALT/SGPT) 28 U/L (16-63) Alkaline Phosphatase 97 U/L (46-116) Total Protein 7.7 g/dL (6.4-8.2) Albumin 3.9 g/dL (3.4-5.0) Albumin/Globulin Ratio 1.0 (1.0-1.7) Laboratory Tests Test 06/29/19 08:10 White Blood Count 10.5 x10^3/uL (4.0-11.0) Red Blood Count 3.45 x10^6/uL (4.30-5.70) Hemoglobin 11.4 g/dL (13.0-17.5) Hematocrit 33.0 % (39.0-53.0) Mean Corpuscular Volume 96 fL (79-100) Mean Corpuscular Hemoglobin 33 pg (25-35) Mean Corpuscular Hemoglobin Concent 35 g/dL (31-37) Red Cell Distribution Width 13.9 % (11.5-14.5) Platelet Count 156 x10^3/uL (140-400) Neutrophils (%) (Auto) 70 % (31-73) Lymphocytes (%) (Auto) 17 % (24-48) Monocytes (%) (Auto) 13 % (0-9) Eosinophils (%) (Auto) 0 % (0-3) Basophils (%) (Auto) 0 % (0-3) Neutrophils # (Auto) 7.4 x10^3/uL (1.8-7.7) Lymphocytes # (Auto) 1.7 x10^3/uL (1.0-4.8) Monocytes # (Auto) 1.3 x10^3/uL (0.0-1.1) Eosinophils # (Auto) 0.0 x10^3/uL (0.0-0.7) Basophils # (Auto) 0.0 x10^3/uL (0.0-0.2) Notes He is awake and alert and lying in bed. His dressing is intact and dry. Normal motor and sensation distally Assessment and Plan PT and OT today. Coumadin. Okay to weight-bear as tolerated. I would anticipate he will need placement MAYLIN MCCARTHY II, MD Jun 29, 2019 08:49
[2019-06-29] MEDS: PANTOPRAZOLE 40 MG TABLET.DR. PO SCH (09:43)
[2019-06-29 11:00] VITALS: BP 140/76
--- NOTE | 2019-06-29 12:09 | NUR ---
SW following. Discussed with RN, pt is from home alone. Per RN, pt wants to go to [facility]. Pt having PT/OT today in the gym. SW will continue to follow for PT/OT recommendations and discharge planning.
[2019-06-29 12:59] LABS: PROTHROMBIN TIME PATIENT 13.6 SEC (11.7-14.0)
[2019-06-29] MEDS ORDERED: WARFARIN 5 MG TABLET. PO ONE (16:00)
[2019-06-29 19:45] VITALS: BP 139/81
[2019-06-29] MEDS: MORPHINE SULFATE 2 MG/ML VIAL. IV PRN (20:27)
[2019-06-29 23:16] VITALS: BP 126/71
[2019-06-30 03:21] VITALS: BP 129/73
[2019-06-30] MEDS: PANTOPRAZOLE 40 MG TABLET.DR. PO SCH (05:12)
[2019-06-30] MEDS: HYDROcodone/APAP 5/325MG 1 TAB TABLET PO PRN ×3 (05:12→18:07)
[2019-06-30 07:00] VITALS: BP 108/75
[2019-06-30 08:23] LABS: PROTHROMBIN TIME PATIENT 14.5 SEC (11.7-14.0)
[2019-06-30] MEDS ORDERED: HYDR-2761 PO (08:49)
[2019-06-30] MEDS ORDERED: WARF10TA45 MC (08:49)
--- NOTE | 2019-06-30 08:50 | SNU/HH DC ---
DISCHARGE ORDERS DISCHARGE INFORMATION: DISCHARGE DATE: Jun 30, 2019 CONDITION ON DISCHARGE: Stable CODE STATUS: Code Status: Full FPC: SNF STAY <30 DAYS: Yes HOSPICE: HOSPICE: No HOSPICE EVAL & TREAT: No LTAC: ADMIT TO LTAC: No POST DISCHARGE ORDERS: DIET AFTER DISCHARGE: Regular WOUND/INCISION CARE: Ice to area for comfort CHECKS AFTER DISCHARGE: CHECKS AFTER DISCHARGE: Check blood press - daily FOLLOW-UP: PHYSICIAN FOLLOW-UP: f fup dr lazaro upon snu dc, warfarin x 30 days goal inr 2-3 TREATMENT/EQUIPMENT ORDERS: ADAPTIVE EQUIPMENT NEEDED: Front wheeled walker Physical Therapy For: Evalulation/Treatment Occupational Therapy For: Evaluation/Treatment DISCHARGE MEDICATIONS: Home Meds Active Scripts Warfarin Sodium (COUMADIN) 10 Mg Tablet, 1 EACH MC PRN DAILY PRN for SEE COMMENTS for 30 Days, TAB post hip sx, x 30 days only, goal inr 2-3 Prov:THERESA LEIVA MD 06/30/19 Hydrocodone Bit/Acetaminophen (HYDROCODONE-APAP 5-325 ) 1 Tab Tablet, 1 TAB PO PRN Q4HRS PRN for MODERATE PAIN 4-6, #30 TAB Prov:THERESA LEIVA MD 06/30/19 Reported Medications Pantoprazole Sodium (PANTOPRAZOLE SODIUM ) 40 Mg Tablet., 40 MG PO DAILYAC for GERD, TAB 06/28/19 Cetirizine Hcl (CETIRIZINE HCL) 10 Mg Tablet, 1 TAB PO DAILY for allergies, #30 TAB 5 Refills 06/28/19 Discontinued Reported Medications Aspirin (ASPIRIN) 81 Mg Tab.chew, 1 TAB PO DAILY for supplement, #30 TAB 3 Refills 06/28/19 THERESA LEIVA MD Jun 30, 2019 08:50
--- NOTE | 2019-06-30 08:57 | PDOC ---
ORTHO PROGRESS NOTES Subjective He is complaining of some ache around his hip and he is participating in physical therapy. Overall though his pain is tolerable Vitals Vital Signs Date Time Temp Pulse Resp B/P (MAP) Pulse Ox O2 Delivery O2 Flow Rate FiO2 06/30/19 07:00 98.7 80 16 108/75 (86) 93 Room Air 98.7 Labs Laboratory Tests Test 06/29/19 08:10 06/29/19 12:10 White Blood Count 10.5 x10^3/uL (4.0-11.0) Red Blood Count 3.45 x10^6/uL (4.30-5.70) Hemoglobin 11.4 g/dL (13.0-17.5) Hematocrit 33.0 % (39.0-53.0) Mean Corpuscular Volume 96 fL (79-100) Mean Corpuscular Hemoglobin 33 pg (25-35) Mean Corpuscular Hemoglobin Concent 35 g/dL (31-37) Red Cell Distribution Width 13.9 % (11.5-14.5) Platelet Count 156 x10^3/uL (140-400) Neutrophils (%) (Auto) 70 % (31-73) Lymphocytes (%) (Auto) 17 % (24-48) Monocytes (%) (Auto) 13 % (0-9) Eosinophils (%) (Auto) 0 % (0-3) Basophils (%) (Auto) 0 % (0-3) Neutrophils # (Auto) 7.4 x10^3/uL (1.8-7.7) Lymphocytes # (Auto) 1.7 x10^3/uL (1.0-4.8) Monocytes # (Auto) 1.3 x10^3/uL (0.0-1.1) Eosinophils # (Auto) 0.0 x10^3/uL (0.0-0.7) Basophils # (Auto) 0.0 x10^3/uL (0.0-0.2) Sodium Level 136 mmol/L (136-145) Potassium Level 4.3 mmol/L (3.5-5.1) Chloride Level 102 mmol/L (98-107) Carbon Dioxide Level 24 mmol/L (21-32) Anion Gap 10 (6-14) Blood Urea Nitrogen 17 mg/dL (8-26) Creatinine 1.2 mg/dL (0.7-1.3) Estimated GFR (Cockcroft-Gault) 59.5 Glucose Level 104 mg/dL (70-99) Calcium Level 8.1 mg/dL (8.5-10.1) 25-Hydroxy Vitamin D Total 31.0 ng/mL (30-100) Prothrombin Time 13.6 SEC (11.7-14.0) Prothromb Time International Ratio 1.1 (0.8-1.1) Laboratory Tests Test 06/29/19 12:10 Prothrombin Time 13.6 SEC (11.7-14.0) Prothromb Time International Ratio 1.1 (0.8-1.1) Notes He is awake and alert and lying in bed. Normal motor and sensation are present in his left lower extremity. Dressing is intact and fairly dry Assessment and Plan He can weight-bear as tolerated. PT and OT. I'm okay with transfer to rehabilitation facility when a bed is available. Coumadin for 1 month MAYLIN MCCARTHY II, MD Jun 30, 2019 08:56
--- NOTE | 2019-06-30 10:31 | NUR ---
Pharmacy Warfarin Dosing Note S:Pharmacy consulted to assist with anticoagulation therapy started 06/28/19 with target INR: 1.6 - 2.5 O:JOSE POPE is a 74 year old M with a Hip Fracture Allergies:No Known Drug Allergies Height: 6 feet, 0 inches Weight: 86.2 kg LABS: Last INR: 1.2 Last HGB: 11.4 Last HCT: 33 Last PLT: 156 Ongoing Drug Interactions: A:INR below desired Range. Target Range for this patient is: 1.6 - 2.5 P: Warfarin dose: 7.5 mg will be given today prior to discharge. Give 5 mg daily. Draw INR on 06/07/19, and request attending physician to dose warfarin for a goal INR 1.6 - 2.5 through end of therapy 08/09/19 (6 weeks of therapy). Indication for warfarin is prevention of VTE after major joint surgery. GEMINI AWAN [facility], 06/30/19 [id number]
--- NOTE | 2019-06-30 10:46 | PDOC3 ---
Discharge Summary Visit Information Date of Admission: Jun 28, 2019 Date of Discharge: Jun 30, 2019 Admitting Diagnosis Comment: s/p left hip sx for fx 06/28 HTN, controlled Seasonal allergies Ground level fall Brief Hospital Course Allergies Allergies Coded Allergies Type Severity Reaction Last Updated Verified No Known Drug Allergies 06/28/19 No Vital Signs Vital Signs Date Time Temp Pulse Resp B/P (MAP) Pulse Ox O2 Delivery O2 Flow Rate FiO2 06/30/19 10:19 16 Room Air 06/30/19 07:00 98.7 80 108/75 (86) 93 98.7 Lab Results Laboratory Tests Test 06/29/19 08:10 06/29/19 12:10 06/30/19 07:40 White Blood Count 10.5 x10^3/uL (4.0-11.0) Red Blood Count 3.45 x10^6/uL (4.30-5.70) Hemoglobin 11.4 g/dL (13.0-17.5) Hematocrit 33.0 % (39.0-53.0) Mean Corpuscular Volume 96 fL (79-100) Mean Corpuscular Hemoglobin 33 pg (25-35) Mean Corpuscular Hemoglobin Concent 35 g/dL (31-37) Red Cell Distribution Width 13.9 % (11.5-14.5) Platelet Count 156 x10^3/uL (140-400) Neutrophils (%) (Auto) 70 % (31-73) Lymphocytes (%) (Auto) 17 % (24-48) Monocytes (%) (Auto) 13 % (0-9) Eosinophils (%) (Auto) 0 % (0-3) Basophils (%) (Auto) 0 % (0-3) Neutrophils # (Auto) 7.4 x10^3/uL (1.8-7.7) Lymphocytes # (Auto) 1.7 x10^3/uL (1.0-4.8) Monocytes # (Auto) 1.3 x10^3/uL (0.0-1.1) Eosinophils # (Auto) 0.0 x10^3/uL (0.0-0.7) Basophils # (Auto) 0.0 x10^3/uL (0.0-0.2) Sodium Level 136 mmol/L (136-145) Potassium Level 4.3 mmol/L (3.5-5.1) Chloride Level 102 mmol/L (98-107) Carbon Dioxide Level 24 mmol/L (21-32) Anion Gap 10 (6-14) Blood Urea Nitrogen 17 mg/dL (8-26) Creatinine 1.2 mg/dL (0.7-1.3) Estimated GFR (Cockcroft-Gault) 59.5 Glucose Level 104 mg/dL (70-99) Calcium Level 8.1 mg/dL (8.5-10.1) 25-Hydroxy Vitamin D Total 31.0 ng/mL (30-100) Prothrombin Time 13.6 SEC (11.7-14.0) 14.5 SEC (11.7-14.0) Prothromb Time International Ratio 1.1 (0.8-1.1) 1.2 (0.8-1.1) Laboratory Tests Test 06/29/19 12:10 06/30/19 07:40 Prothrombin Time 13.6 SEC (11.7-14.0) 14.5 SEC (11.7-14.0) Prothromb Time International Ratio 1.1 (0.8-1.1) 1.2 (0.8-1.1) Brief Hospital Course Mr. Ronquillo is a 74 old white male who had a ground level wall but fractured his hip so went for sx and tolerated proc VERY WELL not a single issue post op, SNU after hip sx., Ff up ortho on snu dc OAC x 30 days Rx on chart Dc < 30 mins Proc: ortho Discharge Information Condition at Discharge: Improved, Stable Disposition/Orders: Other (snu) Scheduled Cetirizine Hcl (Cetirizine Hcl) 10 Mg Tablet, 1 TAB PO DAILY for allergies, #30 Ref 5 (Reported) Entered as Reported by: LEA RGEY RN on 06/28/19952 Last Taken: Unknown Dose on 06/27/19 Last Action: HELD on 06/29/19721 by THERESA LEIVA Pantoprazole Sodium (Pantoprazole Sodium ) 40 Mg Tablet.dr, 40 MG PO DAILYAC for GERD, (Reported) Entered as Reported by: LEA GREY RN on 06/28/19952 Last Taken: Unknown Dose on 06/27/19 Last Action: Continued on 06/29/19721 by THERESA LEIVA Scheduled PRN Hydrocodone Bit/Acetaminophen (Hydrocodone-Apap 5-325 ) 1 Tab Tablet, 1 TAB PO PRN Q4HRS PRN for MODERATE PAIN 4-6, #30 Prescribed by: THERESA LEIVA on 06/30/19 0849 Warfarin Sodium (Coumadin) 10 Mg Tablet, 1 EACH MC PRN DAILY PRN for SEE COMMENTS for 30 Days post hip sx, x 30 days only, goal inr 2-3 Prescribed by: THERESA LEIVA on 06/30/19 0849 Discontinued Medications Aspirin (Aspirin) 81 Mg Tab.chew, 1 TAB PO DAILY for supplement, #30 Ref 3 (Reported) Entered as Reported by: LEA GREY RN on 06/28/1951 Last Taken: Unknown Dose on 06/27/19 Last Action: HELD on 06/29/19721 by THERESA LAZO MD Jun 30, 2019 10:46
[2019-06-30 11:00] VITALS: BP 137/81
[2019-06-30] MEDS: MORPHINE SULFATE 2 MG/ML VIAL. IV PRN (12:45)
--- NOTE | 2019-06-30 13:28 | NUR ---
[facility] following for discharge planning. Discussed with RN. SNU referral sent to [facility], [facility] has accepted pt, questioned whether pt was having chemo currently. [facility] confirmed with RN, pt is not currently receiving chemo. [facility] accepted pt, discharge orders faxed. SW awaiting transportation time for tomorrow (07/01/19). RN notified. Addendum: 06/30/19 at 1617 by KRYSTAL RAE Pt will discharge to [facility] tomorrow (07/01/19). [facility] will collect pt at 10am. Pt choice and rights letter signed and placed on chart. No further SW needs. RN notified.
[2019-06-30 15:00] VITALS: BP 122/76
[2019-06-30] MEDS ORDERED: WARFARIN 7.5 MG TABLET. PO ONE (16:00)
--- NOTE | 2019-06-30 18:06 | PATHOLOGY ---
[facility] Accession Number: [id number] . 01 Material submitted: . hip - LEFT HIP BONE AND TISSUE. Modifiers: left . 01 Clinical history: . Left hip fracture . 02 Diagnosis: Femoral head and attached portion of femoral neck and separate segments of bone, left hip hemiarthroplasty: - Focal fragmentation of bony trabeculae and recent intertrabecular hemorrhage consistent with fracture. . (JPM:mml; 06/30/2019) M 06/30/2019 1643 Local . 02 Comment: There is no evidence of malignancy. . (JPM:mml; 06/30/2019) . 02 Electronically signed: . Zurdo Sung MD, Pathologist NPI- [id number] . 01 Gross description: . Received in formalin labeled "Agustin Ronquillo, left hip bone and tissue," is a femoral head with attached partial femoral neck measuring 5.7 x 5.4 x 4.6 cm in greatest dimensions admixed with multiple smaller fragments of granular, yellow-lancaster to dark brown bone measuring 3.2 x 2.5 x 1.0 cm in aggregate dimensions. The femoral head articular surface is smooth to granular and pale lancaster to light brown in appearance, displaying no gross evidence of eburnation. The bone margin is jagged and hemorrhagic in appearance, grossly consistent with a fracture site. Serial sectioning through the femoral head/neck reveals pale pink-yellow and slightly hemorrhagic cut surfaces, with extensive dark brown hemorrhage noted at the bone margin. Direct Marketing Analyst sections of the femoral head bone margin are submitted in cassette A1, following decalcification. The additionally received bone fragments are submitted representatively in cassette A2, following decalcification. (DAC; 06/29/2019) XDC/XDC 06/29/2019 0750 Local . 02 Pathologist provided ICD-10: S72.092A . 02 CPT . 778786, [id number] Specimen Comment: A courtesy copy of this report has been sent to Specimen Comment: [phone], , , . Specimen Comment: Report sent to Specimen Comment: Report sent to ,DR LEIVA / DR MALHOTRA Specimen Comment: DR DWYER [facility]formed at: [facility] [address] [id number] MD Orlin Sen MD Phone: [phone] Performed at: 02 [facility] [address] [place] [id number] MD Zurdo Sung MD Phone: [phone]
[2019-06-30 19:12] VITALS: BP 136/72
[2019-06-30 23:10] VITALS: BP 113/68
[2019-07-01 03:06] VITALS: BP 128/69
[2019-07-01 07:00] VITALS: BP 140/79
[2019-07-01] MEDS: PANTOPRAZOLE 40 MG TABLET.DR. PO SCH (07:35)
--- NOTE | 2019-07-01 09:44 | NUR ---
Discharge instructions reviewed with patient, verbalized understanding. Patient was escorted out via wheelchair by transport from [place]. All belongings reviewed with patient.
[2019-07-01 10:02] LABS: PROTHROMBIN TIME PATIENT 14.5 SEC (11.7-14.0)
== END 2019-07-01 10:47 | DRG 470 ==
LOC: ER 02:32 → ED HOLD 03:50 → 4 NORTH 07:21
PROVIDERS: ADMIT Internal Medicine; ATTEND Internal Medicine
PROC: 0SRS019 Replacement of Left Hip Joint, Femoral Surface with Metal Synthetic Substitute, Cemented, Open Approach (ICD-10-PCS; principal; 2019-06-28 11:40)
DX: S72.002A Fracture of unspecified part of neck of left femur, initial encounter for closed fracture (principal); I10 Essential (primary) hypertension; M10.9 Gout, unspecified; J30.2 Other seasonal allergic rhinitis; K21.9 Gastro-esophageal reflux disease without esophagitis; W18.39XA Other fall on same level, initial encounter; Y93.89 Activity, other specified; Y92.89 Other specified places as the place of occurrence of the external cause; Y99.8 Other external cause status; Z85.79 Personal history of other malignant neoplasms of lymphoid, hematopoietic and related tissues; Z79.01 Long term (current) use of anticoagulants; Z79.82 Long term (current) use of aspirin; Z82.49 Family history of ischemic heart disease and other diseases of the circulatory system
CPT/HCPCS: 36415; 72170; 73110; 73502; 80048; 80053; 82306; 85025; 85610; 85730; 88305; 88311; 96361; 96365; 96366; A7015; C1713; J0171; J0696; J1100; J1885; J2001; J2270; J2370; J2405; J2704; J2710; J7030; J7120; 97110; 97116; 97150; 97530; 97535; 99285-25; G0378